=== PATIENT | male | born 2005 | race Caucasian/White ===

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

== ENCOUNTER 2024-05-28 23:46 | Emergency (ER) | payer MEDICAID, SELFPAY ==
[2024-05-28 23:46] VITALS: BP 138/71; PULSE 58; RESP 18; O2SAT 98
[2024-05-28 23:52] VITALS: PULSE 51; RESP 18; TEMP 36.4; O2SAT 99; BMI 27.8
--- NOTE | 2024-05-29 00:04 | ED.RN ---
When the patient first arrived via EMS he stated I took tylenol even though I am allergic because it was all we had in the cabinet and my head was hurting that bad. This RN asked the pt how long ago did you take it and what was the dosage? and he stated 200mg and an hour ago. This RN attempted to start an IV and Julien Weeks attempted to start an iv and was unsuccessful. The patient stated Nah I dont want an IV and i took ibuprofen 200mg. This RN stated you told me when you got here that you took tylenol and that you were allergic. Let me go talk to the doctor because this changes the plan of care. This RN informed Dr Whitehead that the patient thinks he took ibuprofen and not tylenol.
--- NOTE | 2024-05-29 00:11 | EX.ED.VIS.HA ---
HPI History of Present Illness Chief Complaint: Headache Informant: patient Onset/Context/Timing Onset: Days Context: Gradual Timing: Continuous Location: Left-sided headache for 4 days. Current Severity: Moderate Maximum Severity: Moderate Associated Symptoms/Injury Associated Symptoms: Positive for Photophobia; Negative for Fever, Nausea, Vomiting, Sinus Pressure, Numbness, Tingling, Preceding Aura, Visual Changes, Blurred Vision or Visual Loss Injury - CHRISTIAN: Negative for Direct Trauma, Fall or Assault Narrative Narrative: 18-year-old male history of seizures recent hospitalization in [facility]. Said he had both CAT scan and MRIs of his brain which showed no specific abnormalities. Currently is on Keppra. Says had a headache now for the last 4 days. Gradual onset around Sunday. He typically does not get headaches. He denies any recent trauma. No fever. No sinus congestion. No family history of intracranial bleeds. No family history of aneurysms. He has never had brain surgery. Prior similar symptoms: No Recent Illness/Hospitalization: Yes [facility] Medical History Broken arm Home Medications ?Medication ?Instructions ?Recorded ?Last Taken ?Type dexmethylphenidate 15 mg 15 mg PO DAILY 06/05/14 Unknown History capsule,extended release [id number] (Focalin XR) methylphenidate HCl 5 mg tablet 5 mg PO DAILY 04/25/15 Unknown History ondansetron 4 mg disintegrating 4 mg PO Q8H PRN PRN Nausea #6 tabs 04/25/15 Unknown Rx tablet Allergy/AdvReac Type Severity Reaction Status Date / Time acetaminophen (From Tylenol) Allergy Anaphylaxis Verified 05/28/24 23:51 Social History Smoking Status: Current every day smoker tobacco type: e-cigarettes ROS ROS ED ROS Narrative Headache. Denies illness. Denies fever. Denies neck pain. Constitutional Constitutional ED: Denies chills or fever(s) Eyes Eyes: Denies blurry vision ENT ENT ED: Denies ear pain Cardiovascular Cardiovascular: Denies chest pain or palpitations Respiratory/Chest Respiratory/Chest: Denies cough or dyspnea Gastrointestinal Gastrointestinal: Denies abdominal pain Genitourinary Genitourinary ED: Denies dysuria or hematuria Musculoskeletal Musculoskeletal: Denies arthralgias Integumentary Denies abscess or Abrasions Neurologic Neurologic: Denies headache(s) Psychiatric Psychiatric: Denies anxiety or depression Endocrine Endocrinology: Denies polydipsia Hematologic/Lymphatic Hematologic/Lymphatic: Denies easy bleeding Allergic/Immunologic Allergic/Immunologic ED: Denies mouth swelling, tongue swelling or urticaria EXAM Physical Exam Narrative Exam Narrative: 18-year-old male sitting upright in bed. Vital signs are stable afebrile. He does not look septic or toxic any distress. HEENT exam pupils round reactive light. Motions are intact. No facial droop. Normal speech. Moist mucous membranes. Head no signs of trauma. No reproducible tenderness. Describes pain on the left side of his scalp. Neck nontender. No lymphadenopathy. No meningismus. He can easily touch his chin to his chest. Back nontender. Lungs clear. Heart regular rhythm rate about 60 no murmur. Chest wall ribs nontender. Abdomen soft nontender. Moving all 4 extremities. Calves are nontender without edema or cords. Neurologically he is awake and alert. No focal motor deficits. NIH is 0. Normal speech. 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 Bilateral dorsi plantarflexion. Fingertip to nose [id number] all within normal limits. He ambulates without any difficulty. Const Vital Signs: 05/28/24 23:46 05/28/24 23:52 05/29/24 00:41 Temperature 97.5 F L Temperature Source Oral Pulse Rate 58 L 51 L 51 L Respiratory Rate 18 18 17 Blood Pressure 138/71 H 135/79 H Blood Pressure Mean 93 97 Pulse Ox 98 99 97 Oxygen Delivery Method Room Air Room Air Room Air Positive well nourished and well developed; Negative for cachectic, contractures or unkempt General Appearance ED: well developed and NAD; Negative for unkempt, cachectic, contractures, cyanotic, diaphoretic or pallor Nutritional Appearance: Negative for cachectic HEENT Reports normocephalic and moist mucous membranes atraumatic; Negative for trauma, tenderness, temporal artery tenderness or vesicular rash Face and Sinus: Negative for sinus tenderness Eyes PERRL and EOMs intact bilaterally General Eye ED: Negative for pale conjunctiva Neck no lymphadenopathy, supple, no meningeal signs and no JVD Resp normal respiratory effort and clear to auscultation bilaterally Effort and Inspection: Negative for retractions Auscultation: Negative for rales, rhonchi, wheezes or diminished lung sounds Cardio regular rate, regular rhythm, S1 normal heart sound, S2 normal heart sound and no murmurs GI non-tender and non-distended Auscultation: normoactive bowel sounds Palpation: soft; Negative for firm, tender or mass Back/Spine no CVA tenderness General Back: Negative for CVA tenderness Cervical Spine: Negative for cervical spine tenderness Thoracic Spine / Upper Back: Negative for thoracic spinal tenderness Lumbar Spine / Lower Back: Negative for lumbar spinal tenderness Extremity normal to inspection and full ROM General Extremety ED: Negative for edema or tenderness General Extremity: Negative for edema Neuro oriented x3 and CN's II-XII intact bilaterally Sensorium / Orientation: awake, alert, oriented to person, oriented to place and oriented to time; Negative for orientation impaired or lethargic Coordination / Balance: [id number] test normal and [id number] test normal Speech: speech normal Gait (Neuro): normal gait Motor Exam: strength 5/5 throughout Psych mental status grossly normal Appearance: Negative for unkempt Attitude: No agitated Mood & Affect: Negative for depressed, anxious or tearful Skin General Skin Exam: elasticity normal and turgor normal; Negative for jaundice or pallor Lesions: no lesions Rashes: no rashes MDM MDM MDM Narrative Medical decision making narrative: 18-year-old male history of seizure disorder on Keppra. States he had recent imaging that was negative. Planing of left-sided headache for 4 days. Exam normal. Neurologic exam normal. No history or signs of trauma. Nurses had previously tried an IV patient did not want them to keep trying. He will be given a IM injection of Toradol and reassess. At around 1:15 AM nurses told me that patient wanted to leave. I went back to reevaluate him. He was standing in the hallway. Stated his mom's hearing is got ago. He said his headache and resolved. He could not wait either get home-going instructions. He initially requested a work excuse but he said he had to go and he left without it. Repeat exam he was awake and alert. With no focal motor deficits. He ambulated out of the emergency department without any difficulty. Discharge Plan Triage Chief Complaint: Headache ED Provider: Gallo Whitehead Dx/Rx/DC Orders Clinical Impression: Headache, Eloped from emergency department Prescriptions: No Action dexmethylphenidate [Focalin XR] 15 MG capsule,ER biphasic 50-50 15 mg PO DAILY methylphenidate HCl 5 MG tablet 5 mg PO DAILY ondansetron 4 MG tablet 4 mg PO Q8H PRN PRN (Reason: Nausea) Qty: 6 0RF Primary Care Provider: Care Physician,No Primary Referrals: Gale Medel MD [Non-Staff] - Print Language: Urdu Disposition Disposition: Elopement
[2024-05-29] MEDS: Ketorolac 60 MG/2 ML Vial IM (00:22)
--- NOTE | 2024-05-29 00:39 | ED.RN ---
The pt called out because the room was too hot. This RN said It is set to 55 I cant lower it any more. Pt states Oh my GODDD I am going to . This RN said I can leave the door open to get some airflow if you want. PT declined. Pt also said Can you take this blood pressure cuff off of me, it is pissing me off. This RN said Yep i will take it off and let the doc know. Dr Whitehead is aware.
[2024-05-29 00:41] VITALS: BP 135/79; PULSE 51; RESP 17; O2SAT 97
--- NOTE | 2024-05-29 01:16 | ED.RN ---
Pt is pacing the hallway requesting a work note. aware and was writing the work note when patient said I dont want to wait I have to go. I dont have time, if I dont get my papers and work note its fine. Pt ambulated off unit without dc papers and work note.
== END 2024-05-29 01:20 | disposition left against medical advice (07) ==
PROVIDERS: Emergency Provider Emergency Medicine; Visit Provider Emergency Medicine
DX: G40.909 Epilepsy, unspecified, not intractable, without status epilepticus (principal); F17.290 Nicotine dependence, other tobacco product, uncomplicated; Z79.899 Other long term (current) drug therapy; Z53.29 Procedure and treatment not carried out because of patient's decision for other reasons
CPT/HCPCS: 96372; 99285

== ENCOUNTER 2024-06-13 16:03 | Emergency (ER) | payer MEDICAID, SELFPAY ==
[2024-06-13 16:04] VITALS: BP 105/88; PULSE 116; RESP 18; TEMP 36.5; O2SAT 96; BMI 26.2
--- NOTE | 2024-06-13 16:09 | EDS_ITS ---
HPI History of Present Illness Chief Complaint: Nausea/Vomiting/Diarrhea [facility] Medical History Broken arm Home Medications ?Medication ?Instructions ?Recorded ?Last Taken ?Type dexmethylphenidate 15 mg 15 mg PO DAILY 06/05/14 Unkn own History capsule,extended release [id number] (Focalin XR) methylphenidate HCl 5 mg tablet 5 mg PO DAILY 04/25/15 Unknown History ondansetron 4 mg disintegrating 4 mg PO Q8H PRN PRN Na usea #6 tabs 04/25/15 Unknown Rx tablet Allergy/AdvReac Type Severity Reaction Status Date / Time acetaminophen (From Tylenol) Allergy Anaphylaxis Verified 05/28/24 23:51 Social History Smoking Status: Current every day smoker tobacco type: e-cigarettes EXAM Physical Exam Const Vital Signs: 06/13/24 16:04 Temperature 97.7 F L Temperature Source Temporal Pulse Rate 116 H Respiratory Rate 18 Blood Pressure 105/88 H Blood Pressure Mean 93 Pulse Ox 96 Oxygen Delivery Method Room Air [facility] MDM Narrative Medical decision making narrative: HISTORY OF PRESENT ILLNESS: 18-year-old male presents with nausea vomiting diarrhea for 2 days. States abdominal pain and headache as well. He further states he has sick contact one of his friends had norovirus within the last week or so. He denies any blood in his vomit or stool. He notes every time he goes the bathroom he has to vomit. He notes lightheadedness started after vomiting. Denies history abdominal surgeries. Patient denies sudden onset or thunderclap headache, denies maximal intensity within 1 minute, vomiting, neck pain, stiffness, changes in vision, fever, history malignancy, syncope, or seizures associated with headache. REVIEW OF SYSTEMS: Pertinent positives: Nausea vomit diarrhea, abdominal pain, headache Pertinent negatives: Fever, focal weakness, syncope PHYSICAL EXAM: Nursing triage notes reviewed, Vital signs reviewed Constitutional: please see mdm HENT: MMM Eyes: Pupils equal round and reactive to light, Extraocular muscles intact Neck: No stridor, no JVD, full neck ROM Lungs: Clear to auscultation, No wheezing or rales. No increased work of breathing, no conversational dyspnea, no accessory muscle use, no nasal flaring. No respiratory distress noted Heart: Regular rate and rhythm, No murmurs, No rubs and No gallops, 2+ distal pulses (radial, femoral, posterior tibial) in all extremities Abdomen: Soft, there is no tenderness, rigidity, rebound or guarding, no obvious peritoneal signs, no palpable pulsatile abdominal masses, no auscultated abdominal bruit : No CVAT Extremities: No edema Neuro: N alert and oriented x3, neuro exam at baseline, cranial nerves II through XII are intact. No pain with extraocular muscle movement. There is negative test of skew. 5 of 5 strength in upper and lower extremities in flexion extension. Intact sensation to light touch in upper and lower extremity dermatomes. No truncal or extremity ataxia. No dysdiadochokinesia. Normal g ait. 2+ reflexes in upper and lower extremities. No meningeal signs. Negative Babinski. NIH of 0. Skin: No rash or lesions noted MEDICAL DECISION MAKING: Chief Complaint: Abdominal pain, nausea vomit diarrhea, headache External records reviewed: Reviewed prior imaging studies Factors affecting care: none Social determinants of health: none History obtained from others: none Consults: none [facility] Narrative: Patient was initially tachycardic rate of 116 otherwise afebrile, nontoxic- appearing. Abdominal exam benign, no signs of bowel obstruction or perforation. No TTP in right upper quadrant. Negative Donald sign. Neuroexam without focal deficits. I considered the following differential diagnosis: Dehydration, electrolyte disturbance, acute pancreatitis, hepatobiliary obstruction, acute appendicitis, other surgical pathology of the abdomen and pelvis (small bowel obstruction, perforation). I obtained a broad lab workup to further elucidate the etiology the patient's c omplaints to screen for signs of significant dehydration or electrolyte abnormalities. I treated the patient with IV normal saline, Pepcid, Zofran and Toradol ALL IMAGES (IF OBTAINED) HAVE BEEN PERSONALLY REVIEWED AND INTERPRETED BY MYSELF. CBC with slight leukocytosis of 11.2, no anemia or thrombocytopenia, noted elevated hemoglobin consistent hemoconcentration and dehydration BMP without evidence of significant electrolyte abnormalities, no anion gap, no acute kidney injury. LFTs show no evidence of hepatobiliary pathology. Lipase is wnl indicating no pancreatic inflammation. Repeat abdominal exam remained benign. Patient was able tolerate p.o. here. He is given prescription for Zofran. Likely setting from viral gastroenteritis. Strict return precautions were discussed. Follow-up with PCP was arranged. The patient and/or family, caregivers express understanding. The patient and/or family, caregivers agrees with the plan. Shared decision making: I will have a discussion with the patient and or visitors regarding risk/benefits of further testing or admission. They will be made aware of of the risk/benefits inherent in this decision they will be given the opportunity to voice understanding. Total critical care time today provided was at least 0 minutes. This excludes separately billable procedures. Critical care time (if documented) is secondary to the patient having high probability of clinically significant/life threatening deterioration in the patient's condition which required my urgent intervention. Impression: 1. Acute nausea vomiting diarrhea 2. Acute viral gastroenteritis Dispo: discharge home This note was generated with TeamSupport dictation software. It may contain incorrect words, spelling, and punctuation that were not noted in review of the chart prior to signing. Lab Data Labs: Laboratory Results - last 24 hr 06/13/24 16:35 WBC 11.2 H RBC 5.52 Hgb 17.1 H Hct 49.1 MCV 88.9 MCH 31.0 MCHC 34.8 RDW Std Deviation 38.6 RDW Coeff of Amandeep 11.9 Plt Count 251 MPV 8.7 Immature Gran % (Auto) 0.400 Neut % (Auto) 91.8 H Lymph % (Auto) 4.0 L [place] % (Auto) 3.1 Eos % (Auto) 0.4 Baso % (Auto) 0.3 Absolute Neuts (auto) 10.3 H Absolute Lymphs (auto) 0.45 L Nucleated RBC % 0 Sodium 140 Potassium 4.1 Chloride Direct 105 Carbon Dioxide 23.0 Anion Gap 12 BUN 14 Creatinine 0.74 Estim Creat Clear Calc 165.78 Est GFR (MDRD) Non-Af 134 BUN/Creatinine Ratio 19.6 Glucose 110 H Calcium 9.7 Total Bilirubin 0.69 AST 16 ALT 16 Alkaline Phosphatase 104 Total Protein 7.6 Albumin 4.5 Globulin 3.1 Albumin/Globulin Ratio 1.4 Lipase 14 Discharge Plan Triage Chief Complaint: Nausea/Vomiting/Diarrhea ED Provider: Jason Hogue Dx/Rx/DC Orders Prescriptions: No Action dexmethylphenidate [Focalin XR] 15 MG capsule,ER biphasic 50-50 15 mg PO DAILY methylphenidate HCl 5 MG tablet 5 mg PO DAILY ondansetron 4 MG tablet 4 mg PO Q8H PRN PRN (Reason: Nausea) Qty: 6 0RF Primary Care Provider: Care Physician,No Primary Referrals: Care Physician,No Primary [Primary Care Provider] - Print Language: [place]
[2024-06-13] MEDS: 0.9% Normal Saline (1000mL) 1,000 ML 999 ML IV (16:31)
[2024-06-13] MEDS: Ondansetron 4 MG/2 ML Vial IV (16:32)
[2024-06-13] MEDS: Ketorolac 15 MG/ML Vial IV (16:32)
[2024-06-13 16:50] LABS: Absolute Lymphocyte Count 0.45 X10^3/uL (0.83-4.51); Absolute Neutrophil Count 10.3 X10^3/uL (2.0-7.7); Basophil# 0.03 X10^3/uL; Basophil% 0.3 % (0-1); Eosinophil# 0.05 X10^3/uL; Eosinophils% 0.4 % (0-5); Hematocrit 49.1 % (40-54); Hemoglobin 17.1 g/dL (13.0-16.5); Lymphocyte # 0.45 X10^3/ul (0.83-4.51); Mean Corp Hgb Conc 34.8 g/dL (32-36); Mean Corpuscular Volume 88.9 fL (80-94); Mean Platelet Vol. 8.7 fl (6.2-12.0); Monocyte# 0.35 X10^3/uL; Monocyte% 3.1 % (0-10); NRBC Flagged by Analyzer 0 % (0-5); Neutrophil # 10.25 X10^3/uL (2.7-7.7); Neutrophil % 91.8 % (47-70); POSITIVE DIFFERENTIAL YES; Platelet Count 251 K/mm3 (150-450); RBC Distribution Width CV 11.9 % (11.6-14.6); RBC Distribution Width SD 38.6 fl (35.1-43.9); Red Blood Count 5.52 M/mm3 (4.6-6.2); White Blood Count 11.2 K/mm3 (4.4-11.0)
[2024-06-13] MEDS: Famotidine 200 MG/20 ML MDV 20 MG in 0.9% Normal Saline (Pres. free 8 ML 300 MG IV (16:55)
[2024-06-13 17:06] LABS: Lipase 14 U/L (13-75)
[2024-06-13 17:20] LABS: ALB/GLOB Ratio 1.4 RATIO (0.9-2.4); AST(SGOT) 16 U/L (<=37); Alanine Aminotransfer ALT/SGPT 16 U/L (<=46); Albumin, Serum 4.5 g/dL (3.5-5.0); Alkaline Phosphatase 104 U/L (40-129); Anion Gap 12 (5-15); BUN 14 mg/dL (4-19); BUN/Creat Ratio 19.6 RATIO (10-20); Calcium 9.7 mg/dL (7.6-11.0); Chloride 105 mmol/L (96-108); Creatinine, Serum 0.74 mg/dL (0.70-1.20); EST Glomerular Filtration Rate 134 (>60); Estimated Creatinine Clearance 165.78 ml/min; Globulin 3.1 g/dL (2.2-4.2); Glucose 110 mg/dL (70-99); Potassium 4.1 mmol/L (3.3-5.1); Protein, Total 7.6 g/dL (5.9-8.4); Sodium Level 140 mmol/L (133-145); Total Bilirubin 0.69 mg/dL (0.00-1.30)
[2024-06-13 18:04] VITALS: BP 110/82; PULSE 89; RESP 16; O2SAT 100
[2024-06-13] MEDS: Ibuprofen 200 MG Tablet 400 MG PO (18:17)
[2024-06-13 18:20] VITALS: BP 110/82; PULSE 89; RESP 16; TEMP 37.1; O2SAT 100
== END 2024-06-13 18:23 | disposition home or self-care (01) ==
PROVIDERS: Emergency Provider Emergency Medicine; Visit Provider Emergency Medicine
DX: A08.4 Viral intestinal infection, unspecified (principal); F17.290 Nicotine dependence, other tobacco product, uncomplicated; R51.9 Headache, unspecified; R11.2 Nausea with vomiting, unspecified; R19.7 Diarrhea, unspecified; R45.851 Suicidal ideations
CPT/HCPCS: 80053; 83690; 85025; 96361; 96365; 96375; 99282; 99284; A4216; J2405

== ENCOUNTER 2024-06-13 18:44 | Emergency (ER) | payer MEDICAID, SELFPAY ==
[2024-06-13 18:45] VITALS: PULSE 100; RESP 18; TEMP 36.2; O2SAT 97; BMI 26.5
--- NOTE | 2024-06-13 18:50 | ED.RN ---
PT STATES WHILE IN TRIAGE, I FEEL LIKE FIGHTING SOMEONE. THIS RN STATES TO PATIENT THAT BEHAVIOR LIKE THAT WILL NOT BE TOLERATED. PT STATES YEAH, I KNOW I WONT FIGHT YOU, YOU'RE A GIRL. 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 THIS RN TELLS PATIENT AGAIN THAT THIS BEHAVIOR WILL NOT BE TOLERATED WHILE IN THE EMERGENCY ROOM. SECURITY AND CHARGE NURSE UPDATED
--- NOTE | 2024-06-13 18:53 | EX.ED.DYSGE1 ---
HPI History of Present Illness Chief Complaint: Suicidal [facility] Medical History Broken arm Home Medications ?Medication ?Instructions ?Recorded ?Last Taken ?Type dexmethylphenidate 15 mg 15 mg PO DAILY 06/05/14 Unknown History capsule,extended release [id number] (Focalin XR) methylphenidate HCl 5 mg tablet 5 mg PO DAILY 04/25/15 Unknown History ondansetron 4 mg disintegrating 4 mg PO Q8H PRN PRN Nausea #6 tabs 04/25/15 Unknown Rx tablet ondansetron 4 mg disintegrating 4 mg PO Q8H PRN PRN Nausea #10 tabs 06/13/24 Unknown Rx tablet Allergy/AdvReac Type Severity Reaction Status Date / Time acetaminophen (From Tylenol) Allergy Anaphylaxis Verified 05/28/24 23:51 Social History Smoking Status: Current every day smoker tobacco type: e-cigarettes EXAM Physical Exam Const Vital Signs: 06/13/24 18:45 Temperature 97.1 F L Temperature Source Temporal Pulse Rate 100 Respiratory Rate 18 Pulse Ox 97 Oxygen Delivery Method Room Air MDM MDM MDM Narrative Medical decision making narrative: HISTORY OF PRESENT ILLNESS: 18-year-old male presents with concern for suicidal ideation. He states I have no one. He further states when he tried to call his mother to come pick him up from his prior ED visit he noted he could not get in touch with her. This made him feel alone. He transiently had a suicide ideation. He did not have a specific plan. He notes he longer feels suicidal and just want to try to get a ride home. REVIEW OF SYSTEMS: Pertinent positives: Suicidal ideation Pertinent negatives: Denies homicidal ideation, auditory visual hallucinations PHYSICAL EXAM: Nursing triage notes reviewed, Vital signs reviewed Constitutional: please see mdm HENT: MMM Eyes: Pupils equal round and reactive to light, Extraocular muscles intact Neck: No stridor, no JVD, full neck ROM Lungs: Clear to auscultation, No wheezing or rales. No increased work of breathing, no conversational dyspnea, no accessory muscle use, no nasal flaring. No respiratory distress noted Heart: Regular rate and rhythm, No murmurs, No rubs and No gallops, 2+ distal pulses (radial, femoral, posterior tibial) in all extremities Abdomen: Soft, there is no tenderness, rigidity, rebound or guarding, no obvious peritoneal signs, no palpable pulsatile abdominal masses, no auscultated abdominal bruit : No CVAT Extremities: No edema Neuro: No new focal neurological deficits, cranial nerves II through XII intact, 5/5 strength in all present extremities. Intact sensation to light touch in all present extremities, 2+ reflexes bilateral patella tendons. Skin: Normal affect, not respond internal stimuli Psych: Normal affect, not responding to internal stimuli, nontender tangential. Well-kept. MEDICAL DECISION MAKING: Chief Complaint: Suicidal ideation External records reviewed: No recent psychiatric evaluations MDM Narrative: Patient was initially hemodynamically stable, afebrile and nontoxic-appearing. Normal affect. Goal-directed thought process. Future oriented. No specific plan endorsed to me. Notes he felt lonely after not being get in touch with his mother Patient denied suicidal ideation to me and his sitter. He displays no signs of an emergency psychiatric condition. No indication for medical clearance or behavioral health social work consultation. When it was explained to the patient that going to the psychiatric evaluation would not result in a ride home he quickly recanted his suicidal ideation multiple times per sitter and RN. He is appropriate for discharge home. He has a low risk of suicide completion. The patient and/or family, caregivers express understanding. The patient and/or family, caregivers agrees with the plan. Shared decision making: I will have a discussion with the patient and or visitors regarding risk/benefits of further testing or admission. They will be made aware of of the risk/benefits inherent in this decision they will be given the opportunity to voice understanding. Total critical care time today provided was at least 0 minutes. This excludes separately billable procedures. Critical care time (if documented) is secondary to the patient having high probability of clinically significant/life threatening deterioration in the patient's condition which required my urgent intervention. Impression: 1. Suicidal ideation Dispo: Discharge home This note was generated with [employer] dictation software. It may contain incorrect words, spelling, and punctuation that were not noted in review of the chart prior to signing. Discharge Plan Triage Chief Complaint: Suicidal ED Provider: Jason Hogue Dx/Rx/DC Orders Clinical Impression: Encounter for psychiatric assessment Instructions: CONTRACT, No Harm Prescriptions: No Action dexmethylphenidate [Focalin XR] 15 MG capsule,ER biphasic 50-50 15 mg PO DAILY methylphenidate HCl 5 MG tablet 5 mg PO DAILY ondansetron 4 MG tablet 4 mg PO Q8H PRN PRN (Reason: Nausea) Qty: 6 0RF ondansetron 4 mg tablet,disintegrating 4 mg PO Q8H PRN PRN (Reason: Nausea) Qty: 10 0RF Primary Care Provider: Care Physician,No Primary Referrals: Harry Valencia DO [Med Staff - Branch Operations Manager] - Activity Restrictions/Additional Instructions: Thank you for trusting us with your care today! If you feel like harming yourself, other people or if you see or hear things please return to the emergency department immediately. Please return to the emergency department if your symptoms change or worsen. Please follow with your primary care physician for further outpatient evaluation and management. Print Language: [place]ese Disposition Disposition: Home, Self Care Discharge Date/Time: 06/13/24 19:36
== END 2024-06-13 19:36 | disposition home or self-care (01) ==
PROVIDERS: Emergency Provider Emergency Medicine; Visit Provider Emergency Medicine
DX: Z00.8 Encounter for other general examination (principal); R45.851 Suicidal ideations; F17.290 Nicotine dependence, other tobacco product, uncomplicated
CPT/HCPCS: 99284

== ENCOUNTER 2024-08-05 02:45 | Emergency (ER) | payer MEDICAID, SELFPAY ==
[2024-08-05 02:46] VITALS: BP 113/60; PULSE 71; RESP 18; TEMP 36.5; O2SAT 95; BMI 29.0
--- NOTE | 2024-08-05 03:05 | ED.RN ---
Per Dr. Elena galvez sitter at this time
--- NOTE | 2024-08-05 03:07 | EDS_ITS ---
HPI History of Present Illness Chief Complaint: Suicidal Informant: patient Narrative Narrative: Patient is a 18-year-old male with past medical history of depression requiring psychiatric hospitalization in May of this year. He states that he was placed on medication after that hospitalization but is no longer taking the medication. He states that his family is gone and he feels alone. He states this feeling is worsening his depression and he is having thoughts that the only way to deal with these symptoms or feel better is to just disappear. He denies any plan for self-harm but he states that the place where he is staying does have guns. He denies any alcohol use but states he smokes marijuana daily. He reports that with his worsening depression he does feel that he may need hospitalized to help with his symptoms and therefore presents for evaluation [facility] Medical History Broken arm Home Medications ?Medication ?Instructions ?Recorded ?Last Taken ?Type NK 08/05/24 Unknown History Allergy/AdvReac Type Severity Reaction Status Date / Time acetaminophen (From Tylenol) Allergy Anaphylaxis Verified 08/05/24 02:47 Social History Smoking Status: Current every day smoker tobacco type: e-cigarettes ROS ROS ED Constitutional Constitutional ED: Denies chills or fever(s) Eyes Eyes: Denies change in vision ENT ENT ED: Denies sore throat Cardiovascular Cardiovascular: Denies chest pain Respiratory/Chest Respiratory/Chest: Denies cough or dyspnea Gastrointestinal Gastrointestinal: Denies abdominal pain, diarrhea, nausea or vomiting Genitourinary Genitourinary ED: Denies dysuria Musculoskeletal Musculoskeletal: Denies myalgias Integumentary Denies rash Neurologic Neurologic: Denies headache(s) Psychiatric Psychiatric: Reports depression and suicidal thoughts Hematologic/Lymphatic Hematologic/Lymphatic: Denies easy bleeding or easy bruising EXAM Physical Exam Const Vital Signs: 08/05/24 02:46 Temperature 97.7 F L Temperature Source Oral Pulse Rate 71 Respiratory Rate 18 Blood Pressure 113/60 Blood Pressure Mean 77 Pulse Ox 95 Oxygen Delivery Method Room Air Positive well nourished and well developed General Appearance ED: well developed; Negative for pallor HEENT HEENT Narrative: Normocephalic atraumatic No signs of infection noted in the posterior pharynx Eyes PERRL and EOMs intact bilaterally General Eye ED: Negative for scleral icterus Neck supple Neck Narrative: No nuchal rigidity or meningeal signs noted Resp normal respiratory effort and clear to auscultation bilaterally Cardio regular rate and regular rhythm GI normal to inspection, nondistended, normoactive bowel sounds, non-tender, non- distended and no masses Auscultation: normoactive bowel sounds Palpation: soft Extremity normal to inspection Neuro oriented x3, CN's II-XII intact bilaterally and no sensory deficits noted Sensorium / Orientation: alert Motor Exam: strength 5/5 throughout Psych Psych Narrative: Patient has a depressed/flat affect Mood & Affect: depressed Skin no rashes or lesions noted General Skin Exam: Negative for jaundice or pallor MDM MDM MDM Narrative Medical decision making narrative: Patient arrived to the ER with stable vital. He reported a recent life stressor leading to increased depression with now thoughts of self-harm. He has needed admitted in the past secondary to this and therefore he is higher risk for attempting to harm himself. Therefore psychiatric screening exam was performed. Laboratory studies revealed no clinically significant finding. He was therefore medically cleared and evaluated by crisis center. Psychiatry agrees that with his persistent depression and thoughts of self-harm that he would benefit from inpatient treatment especially as he is requesting at this time. Therefore he will be kept in the hospital and placed in a inpatient psychiatric unit for continued treatment of his depression and to ensure safety. The patient has been medically cleared from an emergency room standpoint and is safe for transfer/placement to a psychiatric hospital. History & Record Review Discussion w/independent historian: Patient Lab Data Attestation: I reviewed the patient's lab results. Labs: Laboratory Results - last 24 hr 08/05/24 08/05/24 02:56 03:10 WBC 7.9 RBC 4.69 Hgb 14.6 Hct 41.3 MCV 88.1 MCH 31.1 MCHC 35.4 RDW Std Deviation 38.7 RDW Coeff of Amandeep 12.2 Plt Count 238 MPV 8.9 Immature Gran % (Auto) 0.300 Neut % (Auto) 47.9 Lymph % (Auto) 41.[address] % (Auto) 8.8 Eos % (Auto) 1.4 Baso % (Auto) 0.5 Absolute Neuts (auto) 3.8 Absolute Lymphs (auto) 3.26 Nucleated RBC % 0 Sodium 139 Potassium 3.6 Chloride 105 Carbon Dioxide 22.8 Anion Gap 12 BUN 15 Creatinine 0.73 Estim Creat Clear Calc 185.28 Est GFR (MDRD) Non-Af 134 BUN/Creatinine Ratio 20.8 H Glucose 126 H Calcium 8.9 Urine Opiates Screen NEGATIVE U Buprenorphine Qual NEGATIVE Ur Oxycodone Screen NEGATIVE Urine Methadone Screen NEGATIVE Urine Fentanyl Screen NEGATIVE Ur Barbiturates Screen NEGATIVE Ur Phencyclidine Scrn NEGATIVE Ur Amphetamines Screen NEGATIVE U Benzodiazepines Scrn NEGATIVE Urine Cocaine Screen NEGATIVE U Cannabinoids Screen PRESUMPTIVE POSITIVE Ethyl Alcohol < 10.1 Management Discussion w/another healthcare provider: Behavioral health Discharge Plan Triage Chief Complaint: Suicidal ED Provider: Gato Parker Dx/Rx/DC Orders Clinical Impression: Depression with suicidal ideation, Marijuana use Prescriptions: No Action NK Primary Care Provider: Care Physician,No Primary Referrals: Care Physician,No Primary [Primary Care Provider] - Print Language: Georgian Disposition Disposition: Psychiatric Hospital or Unit
[2024-08-05 03:25] LABS: Absolute Lymphocyte Count 3.26 X10^3/uL (0.83-4.51); Absolute Neutrophil Count 3.8 X10^3/uL (2.0-7.7); Basophil# 0.04 X10^3/uL; Basophil% 0.5 % (0-1); Eosinophil# 0.11 X10^3/uL; Eosinophils% 1.4 % (0-5); Hematocrit 41.3 % (40-54); Hemoglobin 14.6 g/dL (13.0-16.5); Lymphocyte # 3.26 X10^3/ul (0.83-4.51); Lymphocyte % 41.1 % (19-41); Mean Corp Hgb Conc 35.4 g/dL (32-36); Mean Corpuscular Hgb 31.1 pg (27.0-32.0); Mean Corpuscular Volume 88.1 fL (80-94); Mean Platelet Vol. 8.9 fl (6.2-12.0); Monocyte% 8.8 % (0-10); NRBC Flagged by Analyzer 0 % (0-5); Neutrophil % 47.9 % (47-70); Platelet Count 238 K/mm3 (150-450); RBC Distribution Width CV 12.2 % (11.6-14.6); RBC Distribution Width SD 38.7 fl (35.1-43.9); Red Blood Count 4.69 M/mm3 (4.6-6.2); White Blood Count 7.9 K/mm3 (4.4-11.0)
[2024-08-05 03:32] LABS: Amphetamine Urine NEGATIVE (<1000 ng/mL); Barbiturate Urine NEGATIVE (< 200 ng/mL); Benzodiazepine Urine NEGATIVE (< 200 ng/mL); Buprenorphine Urine NEGATIVE (< 200 ng/mL); Cocaine Urine NEGATIVE (< 300 ng/mL); Fentanyl, Urine NEGATIVE; Methadone Urine NEGATIVE (< 300 ng/mL); Opiates Urine NEGATIVE (< 300 ng/mL); Oxycodone, Urine NEGATIVE (< 100 ng/mL); PCP Urine NEGATIVE (< 25 ng/mL); THC Urine PRESUMPTIVE POSITIVE (< 50 ng/mL)
[2024-08-05 03:48] LABS: Alcohol, Blood (Medical)-Serum < 10.1 mg/dL (<=10.0); Anion Gap 12 (5-15); BUN 15 mg/dL (4-19); BUN/Creat Ratio 20.8 RATIO (10-20); Calcium,Total 8.9 mg/dL (7.6-11.0); Carbon Dioxide 22.8 mmol/L (21.0-32.0); Chloride 105 mmol/L (98-108); Creatinine, Serum 0.73 mg/dL (0.70-1.20); EST Glomerular Filtration Rate 134 (>60); Estimated Creatinine Clearance 185.28 ml/min (50-250); Glucose 126 mg/dL (70-99); Potassium 3.6 mmol/L (3.3-5.1); Sodium Level 139 mmol/L (133-145)
[2024-08-05 05:58] VITALS: BP 114/64; PULSE 70; RESP 18; TEMP 36.6; O2SAT 99
== END 2024-08-05 07:34 ==
PROVIDERS: Emergency Provider Emergency Medicine; Visit Provider Emergency Medicine
DX: F32.A Depression, unspecified (principal); R45.851 Suicidal ideations; F12.90 Cannabis use, unspecified, uncomplicated; F17.290 Nicotine dependence, other tobacco product, uncomplicated
CPT/HCPCS: 80048; 80307; 82077; 85025; 99285